=== PATIENT | female | born 1945 | race Caucasian/White ===

== ENCOUNTER 2025-01-27 10:02 | Emergency (ER) | payer OTHER, SELFPAY ==
[2025-01-27 10:10] VITALS: BP 149/83; PULSE 77; RESP 18; TEMP 36.8; O2SAT 93; BMI 27.4
--- NOTE | 2025-01-27 10:24 | XR_ITS ---
EXAMINATION: PA lateral chest 2 views Technique when upright PA lateral chest 2 views Date and time: January 27, 2025, 10:30 a.m. INDICATIONS: Patient fell today with injury to the chest, chest pain. FINDINGS: Normal heart size Mild to moderate elevation left hemidiaphragm No pneumothorax Clavicles ribs thoracic vertebral bodies do not demonstrate acute fracture IMPRESSION: No pneumothorax or pulmonary contusion
--- NOTE | 2025-01-27 10:24 | EKG_ITS ---
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
--- NOTE | 2025-01-27 10:24 | XR_ITS ---
Examination: CT chest, without intravenous contrast. CT abdomen, without intravenous contrast. CT pelvis, without intravenous contrast. 2-D sagittal and coronal reconstructions. 3-D reconstructions. Date and time of exam: January 27, 2025, 1044 hours INDICATIONS: Ground-level fall today with injury to the chest and abdomen, chest pain abdomen pain CTDI vol (mgy) 8.44 DLP (MGycm) 695 Technique: Multiple CT images, 3.0 mm slice thickness, obtained chest, abdomen, pelvis, with the high-resolution 64 slice scanner.. Sagittal and coronal 2-D reconstructions are obtained. 3-D reconstructions Low dose protocols were performed. One or more of the following dose reduction techniques were used; automated exposure control, adjustment of the mA and/or KV according to patient size, use of iterative reconstruction technique. Findings: Thoracic aorta pulmonary arteries intact No hemopericardium No pneumothorax pulmonary contusion Minor atelectasis left base minimal left pleural fluid Sternum thoracic lumbar vertebral bodies intact Severe osteopenia Rib detail is reduced by patient motion Acute fracture left third, fourth ribs without significant displacement No liver splenic or renal laceration, no perinephric hematoma Absent gallbladder Common bile duct enlarged, 16 mm Aorta intact, no free body in the abdomen Negative for pneumoperitoneum Urinary bladder intact Iliac bone and sacral segments and hips appear intact IMPRESSION: Acute nondisplaced fractures left third, fourth ribs Thoracic aorta pulmonary arteries intact No pneumothorax No abdominal parenchymal laceration Abdominal aorta intact No free blood in the abdomen or pelvis Enlarged common bile duct, recommend hepatobiliary sonography follow-up
--- NOTE | 2025-01-27 10:57 | PD.EDRME ---
Rapid Medical Screening Exam RME Arrival date/time: 01/27/25 10:02 79-year-old female presents to the emergency department today stating that she had a fall on Thursday patient reports left-sided chest pain and rib pain pain with deep inspiration Chief Complaint: Fall Time Seen by Provider: 01/27/25 10:22 Vital signs: Vital Signs Temperature 98.2 F 01/27/25 10:10 Pulse Rate 77 01/27/25 10:10 Respiratory Rate 18 01/27/25 10:10 Blood Pressure 149/83 H 01/27/25 10:10 Pulse Oximetry (%) 93 L 01/27/25 10:10 Oxygen Delivery Method Room Air 01/27/25 10:10 Exam: Left-sided rib pain Clinical Impression: Labs and imaging obtained
[2025-01-27 11:32] LABS: Basophils # (Auto) 0.0 Thou/mm3 (0.0-0.2); Basophils % (Auto) 0 % (0-2.5); Eosinophils # (Auto) 0.0 Thou/mm3 (0.0-0.5); Eosinophils % (Auto) 1 % (0-10); Hematocrit 41.4 % (36.0-46.0); Hemoglobin 13.3 g/dL (12.0-16.0); Immature Granulocytes Auto 0.03 Thou/mm3 (0.00-0.00); Lymphocytes # (Auto) 1.1 Thou/mm3 (1.0-4.8); Lymphocytes % (Auto) 12 % (10-50); Mean Corpuscular HGB Conc 32.1 g/dl (31.0-37.0); Mean Corpuscular Hemoglobin 30.2 pg (25.0-35.0); Mean Corpuscular Volume 94 fL (80-100); Monocytes # (Auto) 0.8 Thou/mm3 (0.0-0.8); Monocytes % (Auto) 10 % (0-12); Neutrophils # (Auto) 6.5 Thou/mm3 (1.8-7.7); Neutrophils % (Auto) 77 % (37-80); Nucleated Red Blood Cell # 0.00 Thou/mm3 (0.00-0.00); Nucleated Red Blood Cell % 0 /100 WBC (0); Platelet Count 190 Thou/mm3 (140-440); RDW Standard Deviation 45.3 fL (36.4-46.3); Red Blood Count 4.41 Miln/mm3 (4.00-5.20); White Blood Count 8.5 Thou/mm3 (3.6-11.0)
[2025-01-27 11:59] LABS: Alanine Aminotransferase < 7 U/L (10-49); Albumin, Serum 4.8 gm/dL (3.4-4.8); Albumin/Globulin Ratio 2.4 (1.2-2.2); Alkaline Phosphatase 100 U/L (46-116); Anion Gap 9 (7-16); Aspartate Amino Transferase 13 U/L (0-34); BUN/Creatinine Ratio 16 Ratio (12-20); Bilirubin,Total 0.4 mg/dL (0.3-1.2); Blood Urea Nitrogen 19 mg/dL (9-23); Calcium 9.5 mg/dL (8.3-10.6); Calcium (Corrected) 9.5 mg/dL (8.5-10.1); Carbon Dioxide 23.4 mMol/L (20.0-31.0); Chloride 110 mMol/L (98-107); Creatinine (Component) 1.2 mg/dL (0.6-1.3); Estimated Creatinine Clearance 38.5 mL/min (>60); Globulin 2.0 gm/dL (2.3-3.5); Glucose 106 mg/dL (74-106); Osmolality,Calculated 285 (275-295); Potassium 4.9 mMol/L (3.4-5.1); Sodium 142 mMol/L (136-145); Total Protein 6.8 gm/dL (5.7-8.2); Troponin I < 0.002 ng/mL (0.0-0.045); eGFR 46 See Note
--- NOTE | 2025-01-27 12:41 | EDNOTE_ITS ---
ED Fall Injury RME/HPI General Chief Complaint: Fall Stated Complaint: Fall on Thursday, hit rocks Time Seen by Provider: 01/27/25 10:22 Arrival date/time: 01/27/25 10:02 79-year-old female patient was brought in by family for evaluation regarding left anterior chest wall pain. Patient sustained a ground-level fall 3 days ago hit her chest on a rock since then has been having pain described as dull ache severity moderate. Denies any neck pain no LOC no other complaints noted patient is not take any blood thinner. Patient is ambulatory. RME / HPI RME / HPI Narrative: 01/27/25 10:02 79-year-old female presents to the emergency department today stating that she had a fall on Thursday patient reports left-sided chest pain and rib pain pain with deep inspiration Exam: Left-sided rib pain Impression: Labs and imaging obtained Related Data Previous Rx's ?Medication ?Instructions ?Recorded lidocaine 5 % topical patch 1 patch topical QDAY #15 e a 01/27/25 tramadol 37.5 mg-acetaminophen 325 1 tab PO QID PRN pa in #20 tabs 01/27/25 mg tablet Allergies Allergy/AdvReac Type Severity Reaction Status Date / Time No Known Drug Allergies Allergy Verified 01/27/25 10:07 Review of Systems Review of Systems Narrative Review of Systems: Review of system reviewed and within normal limits except mentioned in HPI ED Exam Narrative Physical exam: VITAL SIGNS: Reviewed. GENERAL APPEARANCE: Alert and interactive, follows commands, no acute distress, HEAD AND FACE: Non-traumatic. ENT: PERRL, pink conjunctivitis, eyelid no trauma, Mucous membrane moist. NECK: Supple, nontender, no nuchal rigidity. CHEST: Left anterior chest wall tenderness, no crepitus, no paradoxical movement, no retractions. LUNGS: Clear, well ventilated, symmetric, no rales, no wheezing, no ronchi, no stridor, good breath sounds bilaterally. HEART: Regular rate, regular rhythm, no murmur, no gallops. ABDOMEN: Soft, positive bowel sounds, nondistended, no guarding, nontender, no rebound, no masses, RECTAL: Deferred. GENITAL: Deferred. NEUROLOGICAL: Gross motor function intact sensory function intact, Appropriate for age. MUSCULOSKELETAL: low back nontender, full range of motion. EXTREMITIES: Nontender, full range of motion. SKIN: Color pink, dry, no rash, no lacerations, no abrasions, no contusions. LYMPHATICS: Deferred. Course Quality Measures none Orders Category Date Time Status EKG (ED ONLY) *Do not use* NOW Care 01/27/25 10:24 Completed Incentive Spirometry Treatment NOW Care 01/27/25 12:[address] chest abdomen pelvis wo Stat Exams 01/27/25 10:24 Completed EKG (ED Only) Stat Exams 01/27/25 10:24 Draft XR chest 2V Stat Exams 01/27/25 10:24 Completed CBC Stat Lab 01/27/25 11:11 Completed Comprehensive Metabolic Panel Stat Lab 01/27/25 11:11 Completed Troponin I Stat Lab 01/27/25 11:11 Completed HYDROcodone*/APAP 5/325 [[place] 5/325] Med 01/27/25 12:40 Once 1 tab PO X1 ONE Lidocaine 5% Patch Med 01/27/25 12:40 Once 1 patch TOP X1 ONE Vital Signs Vital signs: Vital Signs Temperature 98.2 F 01/27/25 10:10 Pulse Rate 77 01/27/25 10:10 Respiratory Rate 18 01/27/25 10:10 Blood Pressure 149/83 H 01/27/25 10:10 Pulse Oximetry (%) 93 L 01/27/25 10:10 Oxygen Delivery Method Room Air 01/27/25 10:10 Fall MDM Narrative MDM Narrative:: 01/27/25 10:02 79-year-old female patient was brought in by family for evaluation regarding left anterior chest wall pain. Patient sustained a ground- level fall 3 days ago hit her chest on a rock since then has been having pain described as dull ache severity moderate. Denies any neck pain no LOC no other complaints noted patient is not take any blood thinner. Patient is ambulatory. Patient's workup today all came back unremarkable CBC came back normal CMP unremarkable troponin is normal. EKG showed ST interpreted by me nor showed normal sinus rhythm, ventricular rate of 83 bpm, no ST segment elevation depression noted. CT chest abdomen pelvis showed nondisplaced fracture of left 4th and 5th rib. No pneumothorax no hemothorax noted. Results discussed with the patient and family. Patient was referred to physical therapy for incentive spirometry. Patient stable for discharge home. Lidocaine patch applied and was given [place]. Patient data External records reviewed:: None Clinical information provided by:: patient Social determinants that could affect healthcare access:: none Patient has the following chronic illnesses:: None How is presenting disease/condition affected by chronic disease/condition?: no chronic disease Evaluation data The following diagnostics were reviewed and interpreted by me:: lab results, radiology exam(s) and EKG tracing(s) Lab and/or radiology exams considered but not ordered:: None Interpretation Summary: See results MDM Medications / Prescriptions Medications or Prescriptions considered but not ordered:: None Medication administrations:: Medication Administration History Hydrocodone Bitart/Acetaminophen (Hydrocodone/[place]ap 5/325 Tablet) 1 tab PO X1 ONE Stop: 01/27/25 12:41 Lidocaine (Lidocaine 5% 1 Patch) 1 patch TOP X1 ONE Stop: 01/27/25 12:41 Lidocaine patch and [place] Consultations Consultation(s) initiated? (list below): No Diagnosis Fall Differential Diagnosis: other (Fall, chest wall pain, rib fracture) Most likely diagnosis given after review of the tests above:: Rib fracture status post fall Admission Indicated Admission indicated?: not indicated Admission Request Was there a request for admission?: No Disposition Plan Disposition Plan: Discharge Discharge Attestation Discharge Attestation: The patient and all family members were given an opportunity to ask questions and understood the discharge instructions. Discharge instructions specifically effects, indications for sooner follow up or return to the emergency department, and the expected course of current diagnosis. Patient condition: Stable Discharge Plan Plan Patient Disposition: HOME (Self Care) Discharge Disposition comment: Stable Prescriptions/Referrals Prescriptions/Med Rec: New lidocaine 5 % adhesive patch,medicated 1 patch topical QDAY Qty: 15 0RF Rx Instructions: leave on most painful area for up to 12 hrs tramadol-acetaminophen 37.5-325 mg tablet 1 tab PO QID PRN (Reason: pain) Qty: 20 0RF Referrals: Michael Salguero MD [Primary Care Provider] - In 1 week Problem List Clinical Impression: Left rib fracture, Status post fall Patient/Caregiver Discharge Instructions Discharge Activity: activity as tolerated Education Materials: ED Rib Fracture Additional Instructions: Thank you for the opportunity for serving you today. You are stable for discharged . You are advised to: Follow-up with your PCP in 1 to 2 days Return to ED for worsening of symptoms Increase oral fluids Take medication as prescribed Use your incentive spirometry as needed Print Language: Burkinan Stand Alone Forms: Shanti Award Info., Patient Portal Info Letter
[2025-01-27] MEDS: HYDROcodone/APAP 5/325 TABLET 1 TAB PO (12:57)
[2025-01-27] MEDS: LIDOCAINE 5% 1 PATCH TOP (12:57)
== END 2025-01-27 13:28 | disposition home or self-care (01) ==
PROVIDERS: Nurse Practitioner Primary Care; Emergency Provider Emergency Medicine; PCP Family Medicine
DX: S22.32XA Fracture of one rib, left side, initial encounter for closed fracture (principal); W18.30XA Fall on same level, unspecified, initial encounter
CPT/HCPCS: 36415; 71046; 71250; 74176; 80053; 84484; 85025; 93005; 99283; J3490; A9270